=== PATIENT | female | born 1970 | race Caucasian/White ===

== ENCOUNTER 2025-07-19 14:51 | Outpatient (CLI) | payer BC, SELFPAY ==
--- OUTSIDE RECORDS SUMMARY | 2025-07-12 03:09 | XMS_ITS | Continuity of Care Document ---
Author Organization [facility] Address [address] [place] [address] Phone Care Team Providers Care Manager Pharmacy Name Role Phone Marleny Kirkpatrick NP Unavailable Unavailable Allergies, Adverse Reactions, Alerts Substance Reaction Status Criticality codeine Active No Information Medications Medication Instructions Dosage Effective Dates (start - stop) Status Comments Celexa 20 mg tablet TAKE 1 TABLET BY MOUTH DAILY - Active meclizine 25 mg tablet take 1 tablet by oral route 3 times every day as needed 25 MG - Active Vitamin D3 25 mcg (1,000 unit) tablet take 1 tablet by oral route every day 1 tablet - Active Vitamin C 500 mg tablet take 1 tablet by oral route every day 1 tablet - Active Vitamin B-12 1,000 mcg tablet take 1 tablet by oral route every day 1 tablet - Active ondansetron 4 mg disintegrating tablet take 1 tablet by oral route every [address] on top of the tongue where they will dissolve, then swallow 4 MG - Active estradiol-norethindro ne acet 0.5 mg-0.1 mg tablet take 1 tablet by oral route every day 1.00 tablet - Active doxycycline hyclate 50 mg tablet take 1 tablet by oral route once daily - Active B COMPLEX NUMBER 1 (unknown strength) as directed Not Available - Active TESTOSTERONE (unknown strength) 0.125% three times weekly Not Available - Active Procedures Procedure Date Pt inelig neg scrn depres ROUTINE VENIPUNCTURE AR PREVENTATIVE-EST: 40-64 BODY MASS INDEX DOCD SYST BP LT 130 MM HG DIAST BP < 80 MM HG GENERAL HEALTH PANEL LIPID PANEL URINALYSIS, REFLEX (UA) GENERAL HEALTH PANEL LIPID PANEL URINALYSIS, REFLEX (UA) VITAMIN B12 (SERUM) VITAMIN D, 25-HYDROXY Brief Emotional/Behavioral A ssessment, With Scoring/Doct, Per Stndrd Instrument Brief Emotional/Behavioral A ssessment, With Scoring/Doct, Per Stndrd Instrument Clin depression screen doc ROUTINE VENIPUNCTURE [place] PREVENTATIVE-EST: 40-64 BODY MASS INDEX DOCD SYST BP LT 130 MM HG DIAST BP < 80 MM HG Pt inelig neg scrn depres CBC, INC PLATELETS AND DIFFERENTIAL COMPREHEN METABOLIC PANEL CMP LIPID PANEL URINALYSIS, REFLEX (UA) ROUTINE VENIPUNCTURE PREVENTATIVE-EST: 40-64 BODY MASS INDEX DOCD SYST BP LT 130 MM HG DIAST BP < 80 MM HG GENERAL HEALTH PANEL LIPID PANEL URINALYSIS, REFLEX (UA) ROUTINE VENIPUNCTURE OFFICE [id number] BODY MASS INDEX DOCD SYST BP LT 130 MM HG DIAST BP < 80 MM HG Brief Emotional/Behavioral A ssessment, With Scoring/Doct, Per Stndrd Instrument Clin depression screen doc OFFICE [id number] BODY MASS INDEX DOCD SYST BP LT 130 MM HG DIAST BP < 80 MM HG PREVENTATIVE-EST: IMMUN ADMIN (INC PERCUTANEOUS) SINGLE, F IRST INJ FLU VACC 4 ANDREA 0.5mL DOSAGE Brief Emotional/Behavioral A ssessment, With Scoring/Doct, Per Stndrd Instrument Pt inelig neg scrn depres OFFICE [id number] BODY MASS INDEX DOCD SYST BP LT 130 MM HG DIAST BP < 80 MM HG OFFICE [id number] BODY MASS INDEX DOCD SYST BP LT 130 MM HG DIAST BP < 80 MM HG OFFICE [id number] BODY MASS INDEX DOCD SYST BP LT 130 MM HG DIAST BP < 80 MM HG Advance Directives Directive Yes / No Effective Date File Name Life Support Not Answered N/A N/A Intubation Not Answered N/A N/A Antibiotics Not Answered N/A N/A IV Fluid Support Not Answered N/A N/A Tube Feed Not Answered N/A N/A Other Directive N/A N/A WARNING:The information contained in this section is historical and is provided for information only and does not constitute a legal document or any assurance that the information is still accurate. Please verify the information with the storm of the legal document before using it for clinical purposes. Encounters Encounter Description Practice Location Reason(s) For Visit Diagnoses Date Provider Providers Copied on Encounter [facility], [address], [place], [place], [id number] , [place] tel: [phone] [facility] No Information 0- 5 Kaya Farmer. [address] [place], [address], [place]. tel: [phone] PREVENTATIVE -EST: [facility], [address], [place], [place], [address] , tel: [phone] [facility] preventive exam (chief complaint)C hronic Conditions (chief complaint) Encounter for general adult medical examination without abnormal findingsBody mass index [BMI] 27.0-27.9, adultMajor depressive disorder, recurrent, moderateObstructiv e sleep apnea (adult) (pediatric)Hormone replacement therapyPostmenopau myke bleedingScreening for cardiovascular condition 5 Kaya Farmer. [address] [place] [address], [address], . tel: [phone] Referring Provider: Alexia Gonzalez, [address] [place] [address], [address] . tel:[phone] [facility], [address], [place], [place], [address] , tel: [phone] [facility] No Information 5 Polo Carrington. [address] [place] [address], [id number] , . tel: [phone] Referring Provider: Marleny Kirkpatrick, [address] [place] [address], [place], [address]. tel:[phone] [facility], [address], [place], [place], [address] , tel: [phone] [facility] No Information 4 Polo Carrington. [address], [id number] , . tel: [phone] Referring Provider: Marleny Kirkpatrick [address] [place] [address], [address]. tel:[phone] PREVENTATIVE -EST: 40-64 [facility], [address], [place], [place], [address] , tel: [phone] [facility] Yoana OV (chief complaint)P reventive exam (chief complaint)c hronic conditions (chief complaint)C hronic Conditions (chief complaint) Body mass index [BMI] 30.0-30.9, adultVertigoObstru ctive sleep apnea (adult) (pediatric)Hormone replacement therapyWell adult examModerate recurrent major depressionFatigue, unspecified typeVitamin D deficiencyRight knee pain, unspecified chronicityScreenin g for cardiovascular conditionEncounter for screening mammogram for malignant neoplasm of breastEncounter for screening mammogram for malignant neoplasm of breast Sep- 4 Kaya Farmer. [facility] [facility], [place], [address], [place]. tel: [phone] Referring Provider: Alexia Gonzalez, [address] [place] [address], [place], [address] . tel:[phone] PREVENTATIVE -EST: 40-64 [facility], [address], [place], [place], [address] , [place] tel: [phone] [facility] Chronic Conditions (chief complaint)a nnual physical exam (chief complaint) Obstructive sleep apneaAnnual physical examHyperlipidemia , unspecified hyperlipidemia typeRecurrent major depressive disorder, in full remissionBody mass index (BMI) 26.0-26.9, adult Apr- 1 Johan Davies. [address] [place] [address], [id number] , [place]. tel: [phone] Referring Provider: Alexia Gonzalez, [address] [place] [address], [place], [address] . tel:[phone] OFFICE ZDXGA-DJB-DT [facility], [address], [place], [place], [address] , [place] tel: [phone] [facility] Chronic Conditions (chief complaint) Body mass index (BMI) 35.0-35.9, adultMDD (major depressive disorder), recurrent episode, moderateVestibular migraineObstructiv e sleep apneaChronic GERD Sep- 0 Johan Davies. [address] [place] [address], [id number] , [place]. tel: [phone] Referring Provider: Alexia Gonzalez, [address] [place] [address], [place], [address] . tel:[phone] OFFICE BNOHA-SYT-BP [facility], [address], [place], [place], [address] , tel: [phone] [facility] Chronic Conditions (chief complaint) Body mass index (BMI) 35.0-35.9, adultMDD (major depressive disorder), recurrent episode, moderate Aug-0 6-202 0 Jerson Magana. [address] [place] [address], [id number] , [place]. tel: [phone] Referring Provider: Alexia Gonzalez, [address] [place] [address], [place], [address] . tel:[phone] PREVENTATIVE -EST: 40-64 [facility], [address], [place], [place], [address] , tel: [phone] [facility] COVID-educa tion (chief complaint)C hronic Conditions (chief complaint) Vestibular migraineRosaceaMaj or depressive disorder, recurrent, mildObstructive sleep apneaChronic GERDAnnual physical exam Apr-0 7-202 0 Prado Keke. [address] [place] [address], [id number] , [place]. tel: [phone] Referring Provider: Alexia Gonzalez, [address] [place] [address], [address] . tel:[phone] OFFICE PVTMR-PQY-RE [facility], [address], [place], [place], [address] , tel: [phone] [facility] Chronic Conditions (chief complaint) Body mass index (BMI) 32.0-32.9, adultObstructive sleep apneaRosaceaMajor depressive disorder, recurrent, mild Nov-2 0-201 9 Kaya Farmer. [address] [place] [address], [address], [place]. tel: [phone] Referring Provider: Alexia Gonzalez, [address] [place] [address], [place], [address] . tel:[phone] OFFICE DATTY-ISP-EP TAILED [facility], [address], [place], [place], [address] , tel: [phone] [facility] Chronic Conditions (chief complaint) Body mass index (BMI) 31.0-31.9, adultMajor depressive disorder, recurrent, mildChronic GERDConstipation, unspecified constipation type 9 Kaya Farmer. [address] [place] [address], [address], [place]. tel: [phone] Referring Provider: Alexia Gonzalez, [address] [place] [address], [address] . tel:[phone] [facility], [address], [place], [place], [address] , tel: [phone] [facility] Obstructive sleep apnea 9 Becca Hale. [address] [place] [address], [id number] , [place]. tel: [phone] [facility], [address], [place], [place], [address] , tel: [phone] [facility] Obstructive sleep apnea 9 Becca Hale. [address] [place] [address], [id number] , [place]. tel: [phone] [facility], [address], [place], [place], [address] , tel: [phone] [facility] Obstructive sleep apnea 9 Becca Hale. [address] [place] [address], [id number] , [place]. tel: [phone] [facility], [address], [place], [place], [address] , tel: [phone] Care Management MDD (major depressive disorder), recurrent episode, mildAnxiety and depression 9 Jerson Magana. [address] [place] [address], [id number] , [place]. tel: [phone] OFFICE JXAVH-DGL-VR TAILED [facility], [address], [place], [place], [address] , tel: [phone] [facility] Chronic Conditions (chief complaint) Body mass index (BMI) 32.0-32.9, adultMDD (major depressive disorder), recurrent episode, mildChronic GERDVestibular migraineEczema, unspecified typeRosacea Apr- 5-201 9 Jerson Magana. [address] [place] [address], [id number] , [place]. tel: [phone] Referring Provider: Alexia Gonzalez, [address] [place] [address], [address] . tel:[phone] [facility], [address], [place], [place], [address] , tel: [phone] [facility] Chronic GERDMDD (major depressive disorder), recurrent episode, mildVestibular migraineDermatitis Body mass index (BMI) 34.0-34.9, adult Apr-0 9-201 9 Becca Hale. [address] [place] [address], [id number] , [place]. tel: [phone] Referring Provider: Alexia Gonzalez, [address] [place] [address], [address] . tel:[phone] [facility], [address], [place], [place], [address] , tel: [phone] [facility] MDD (major depressive disorder), recurrent episode, mildVestibular migraineChronic GERD Dec-0 6-201 9 Becca Hale. [address] [place] [address], [id number] , [place]. tel: [phone] Referring Provider: Alexia Gonzalez, [address] [place] [address], [address] . tel:[phone] [facility], [address], [place], [place], [address] , tel: [phone] [facility] Vestibular migraineAnxiety and depressionPrimary insomniaBody mass index (BMI) 33.0-33.9, adult Mar-0 7-201 8 Billie Lund. [address] [facility], [address], [place], [address], [place]. tel: [phone] Referring Provider: Ashely Hartley, [address] [facility] [address], [place], [place], [facility]. tel:[phone] Family History Family Member Type Diagnosis Age At Onset Father Problem malignant neopla sm of lung (Cause Of ) Mother Problem (finding) Paternal grandfather Problem (finding) Obesity Brother Problem (finding) Obesity Mother Problem (finding) Arthritis Mother Problem (finding) Obesity Mother Problem (finding) coronary arterioscleros is Mother Problem (finding) Hearing deficiency Mother Problem (finding) asthma Sister Problem (finding) hypertension Brother Problem (finding) Mental illness Maternal grandfather Problem (finding) Obesity Paternal grandmother Problem (finding) Obesity Brother Problem (finding) Hearing deficiency Mother Problem (finding) depression Paternal grandfather Problem (finding) Diabetes mellit us Mother Problem (finding) Allergies Maternal grandfather Problem (finding) hypertension Brother Problem (finding) Allergies Mother Problem (finding) migraine Father Problem (finding) malignant neoplasm of l carlos Maternal grandfather Problem (finding) coronary arteri osclerosis Mother Problem (finding) Renal disease Maternal grandmother Problem (finding) Hearing deficie ncy Mother Problem (finding) hypercholesterolemia Maternal grandmother Problem (finding) Obesity Mother Problem (finding) Diabetes mellitus Mother Problem (finding) hypertension Brother Problem (finding) asthma Maternal grandmother Problem (finding) malignant neoplasm of breast in first degree relative Sister Problem (finding) Obesity Immunizations Vaccine Date Status Comments Fluzone Quad, split virus, 0.5mL dosage administered Source: New Immuniza tion Record Payers Payer name Insurance type Covered green party ID Authoriza tion(s) [place] [id number] [place] [id number] Social History Type Description Quantity Date Captured Comments Alcohol Use Details Unknown Caffeine Use Details Unknown Tobacco Use Status No Information Smoking Status No Information Sex Female Sexual Orientation Straight or heterosexual Gender Identity Female Chief Complaint And Reason For Visit No Information Reason For Referral Reason For Referral No Information Plan Of Treatment Date Type Action Status Goal Dietary management education , guidance, and counseling completed Goal Dietary management education , guidance, and counseling completed Goal Dietary management education , guidance, and counseling completed Goal Dietary management education , guidance, and counseling completed Goal Dietary management education , guidance, and counseling completed Goal Dietary management education , guidance, and counseling completed Goal Dietary management education , guidance, and counseling completed Goal Dietary management education , guidance, and counseling completed Referral Referred To: [address] [facility] [place], [place], [id number] Ordered: SCREENING MAMMOGRAM (CAD) Appointment date/timeframe: 10/04/2024 ordered Referral Referred To: Physical Therapy [address]
[facility] [address] [place], [phone] Ordered: Referrals: Physical Therapy. Location: [facility]. Evaluation/diagnostic/treatment - Level 3 Appointment date/timeframe: 10/05/2024 ordered Referral Referred To: Alcides Delaney MD [address] [facility] [address] [place], [phone] Ordered: Referrals: Pulmonology. Alcides Delaney MD. Evaluate and treat - Level 2 Appointment date/timeframe: 09/09/2019 ordered Referral Referred To: Ermelinda Castellanos MD [address] [facility] [address] [place], [phone] Ordered: Referrals: Pulmonology. Ermelinda Castellanos MD. Evaluate and treat - Level 2 Appointment date/timeframe: 08/17/2019 ordered Referral Referred To: Jian Rainey Ordered: Referrals: Pulmonology. Jian Rainey. Evaluate and treat - Level 2 Appointment date/timeframe: 08/06/2019 ordered Referral Ordered: Referrals: Counseling/mental health services. Location: [facility]. Evaluate and treat - Level 2 ordered Referral Referred To: [facility] Ordered: Referrals: Dermatology. [facility]. Consult - Level 1 Appointment date/timeframe: 05/18/2019 ordered History Of Present Illness Encounter Date Complaint History Of Prese nt Illness preventive exam Postmenopausal. Positive for Hormone replacement therapy . Pertinent negatives include anxiety and depression. Diet healthy. Patient does not take calcium. Patient reports taking Vitamin D. Patient does not take multivitamins. Patient does not take Folic acid.The patient states Patient's exercise level is moderate and frequency is occasional. The patient does not use tobacco. The patient has not been exposed to passive smoke. The patient has not been exposed to passive vaping. The patient does drink alcohol. Additional information: seeing Dr. Jered Lyman for PMH. Has hysteroscopy scheduled. She has had PMB in past with negative workup.. Chronic Conditions *See Chronic Conditions HPI OV Here to reestabl sarah care. Has not been seen since January 2021. At that time she was moving to [facility].Moved back in March.She saw Dr. Juan Alberto Lugo in [place], [place].Getting HRT now through [facility]Needs to have labs drawn for them.Has been feeling tired. Would like vitamin D and B12 levels checked. Is wearing her CPAP again.Has to take a couple naps during the day.Has been having right knee pain. It is the kneecap. Notices it with biking. Still tries to lift weights several days a week. No injury or fall. Interested in physical therapy. Preventive exam Patient's menses is absent. Positive for Hormone replacement therapy . Associated symptoms include anxiety and depression. Diet healthy. Patient does not take calcium. Patient does not take Vitamin D. Patient does not take multivitamins. Patient does not take Folic acid.The patient states Patient's exercise level is moderate and frequency is 3-4 times/week. The patient does not use tobacco. The patient has not been exposed to passive smoke. The patient has not been exposed to passive vaping. The patient does drink alcohol. Additional information: on HRT from [facility]- getting oral progesterone and estrogen and testosterone pelletsneeds mammogrampap- [facility] to [facility] age 51 [facility] chronic conditions *See Chronic Conditions HPI Chronic Conditions *See Chronic Conditions HPI Chronic Conditions *See Chronic Conditions HPI. 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 Chronic Conditions *See Chronic Conditions [facility] Chronic Conditions *See Chronic Conditions [facility] Chronic Conditions *See Chronic Conditions [facility] COVID-education COVID-19 Educati onAt this time patient is not suspected of having COVID-19. Answered patient questions about COVID-19 including signs and symptoms, self home care and warning signs to look for especially the worsening of symptoms and respiratory distress day /. Advised if there is a need to seek care to call first to allow for proper isolation precautions.Phone Consent:This visit was completed via telehealth due to the restrictions of the COVID-19 pandemic. All issues as below were discussed and addressed but no physical exam was performed. The patient verbally consented to visit.Pt called in for her routine office visit.Call lasted for a total of 34 minutes Chronic Conditions *See Chronic Conditions [facility] Chronic Conditions *See Chronic Conditions [facility] Chronic Conditions *See Chronic Conditions HPI Functional Status Date Functional Assessmen t No Information Instructions Date Instruction Additional Infor mation keep hysteroscopy appt with OBGY N Related to Postmenopausal bleeding lipid panel will be checkedCall with any questions or concernsvaccines declinedlabs todayreturn yearly Related to Screening for cardiovascular condition continue on current medicationrefills givencall if this changes Related to Major depressive disorder, recurrent, moderate call if you feel tir ed and need a new sleep study Related to Obstructive sleep apnea (adult) (pediatric) managed by OBGYN Related to Horm one replacement therapy Personal and family medical history reviewed and updated. Medications reviewed and continue as directed. Continue exercise as tolerated and maintain healthy diet. Discussed weight, diet, exercise, immunizations, and healthy lifestyle.mammo- Due in Septemberolon- please let me know who did this and when so we can try to get recordsPap- per Dr. Jered Lyman Related to Encounter for general adult medical examination without abnormal findings Dietary management e ducation, guidance, and counseling Related to Body mass index (BMI) 27.0-27.9, adult Disease process Giving encouragement to exercise Related to Body mass index (BMI) 27.0-27.9, adult [facility]ammogram [facility] Related to Encounter for screening mammogram for malignant neoplasm of breast I will refer you to physical therapy for further evaluation Related to Right knee pain, unspecified chronicity Continue on current citalopram.Please call with any refills Related to Moderate recurrent major depression Lipid level will be checked. Rel ated to Screening for cardiovascular condition Levels will be checked Related t o Vitamin D deficiency Hopefully this will improve with getting the CPAP again.I will check vitamin D and B12 levels. Related to Fatigue, unspecified type follow with Dr. Mario mcnair to get new cpap Related to Obstructive sleep apnea (adult) (pediatric) I will send meclizin e and zofran to the pharmacycall if this worsens Related to Vertigo Personal and family medical history reviewed and updated. Medications reviewed and continue as directed. Continue exercise as tolerated and maintain healthy diet. Discussed weight, diet, exercise, immunizations, and healthy lifestyle.mammo- will ordercolon-will try to get kxoimpkPfc-by-hlkvgdncg for pap Related to Well adult exam This is managed by Kal Delaney.Follow-up as scheduled Related to Hormone replacement therapy Giving encouragement to exercise Related to Body mass index (BMI) 30.0-30.9, adult Dietary management e ducation, guidance, and counseling Related to Body mass index (BMI) 30.0-30.9, adult Disease process Disease process Continue your Celexa as prescribedPlease call if depression worsens.Be sure to get plenty of rest and be sure to stay hydrated.Status: Able to self-manage condition. Barriers: No barriers to goal achievement have been identified. Goals: Your goal is to manage your medicine. Related to Recurrent major depressive disorder, in full remission We will recheck your cholesterol level today Related to Hyperlipidemia, unspecified hyperlipidemia type Reviewed and updated medical, social, and family history. Medications reviewed and continue as directed.Mammogram is due.You are up-to-date on all routine screenings at this time.Continue medications as prescribed.We will check labs today.CBC, CMP, lipids, and urinalysisGREAT WORK WITH THE WEIGHT LOSS!Continue with healthy choices and exercise.Follow-up again in one year.Please call the office with any questions or concerns prior to your next appointment. AVOID CROWDS AVOID TOUCHING YOUR FACE AVOID UNNECESSARY TRAVEL. WASH HANDS OFTEN. CALL WITH QUESTIONS/CONCERNS Related to Annual physical exam We will order a repe at sleep study today to see if your still need your CPAP Related to Obstructive sleep apnea Giving encouragement to exercise Related to Body mass index (BMI) 26.0-26.9, adult Dietary management e ducation, guidance, and counseling Related to Body mass index (BMI) 26.0-26.9, adult Disease process This is well-managed with omeprazole.Continue the medication as prescribed.Please call us if your acid reflux worsens Related to Chronic GERD Continue wearing your CPAP Relat ed to Obstructive sleep apnea Stable.I will refill your Zofran and meclizine today to have if needed.Please call the office if your vestibular migraines start reoccurring Related to Vestibular migraine Depression has signi ficantly improved since restarting Celexa.90 day prescription with 3 refills was sent to the pharmacy.Please call if depression worsens.Be sure to get plenty of rest and be sure to stay hydrated.Status: Not meeting treatment plan goals. Goals: Your goal is to manage your medicine. Barriers: No barriers to goal achievement have been identified. Related to MDD (major depressive disorder), recurrent episode, moderate Giving encouragement to exercise Related to Body mass index (BMI) 35.0-35.9, adult Disease process Dietary management e ducation, guidance, and counseling Related to Body mass index (BMI) 35.0-35.9, adult Medication adjustmen ts: wean off wellbutrin ( take one tablet every other day for 2 weeks then stop)START back on Celexa 20mg, prescription sent to [facility] in 4-6 weeks to discuss how it is workingWill have care management contact you with resources for therapist in your network, highly recommend follow up with someone to discuss concernsBe sure to get plenty of rest, stay hydrated, try to improve nutritionExercise as tolerated, you can try yoga, meditation, or essential oilsCall for any worsening symptoms of depressionStatus: Not meeting treatment plan goals. Goals: Your goal is to manage your medicine. Barriers: No barriers to goal achievement have been identified. Related to MDD (major depressive disorder), recurrent episode, moderate Giving encouragement to exercise Related to Body mass index (BMI) 35.0-35.9, adult Dietary management e ducation, guidance, and counseling Related to Body mass index (BMI) 35.0-35.9, adult Disease process This is well-managed with omeprazole.Continue the medication as prescribed.Please call us if your acid reflux worsens Related to Chronic GERD Continue wearing your CPAP Relat ed to Obstructive sleep apnea You state this is ma naged with your current medications.Please call the office if your depression or anxiety worsensStatus: Able to self-manage condition. Goals: Your goal is to manage your medicine. Barriers: No barriers to goal achievement have been identified. Related to Major depressive disorder, recurrent, mild This is managed by Kal Banks.Continue your doxycycline and Soolantra as prescribed. Related to Rosacea Stable.I will refill your Zofran and meclizine today to have if needed.Please call the office if your vestibular migraines start reoccurring Related to Vestibular migraine You are up-to-date o n all routine screenings at this time.We will obtain a copy of your last Pap smear from Dr. Almendarez's office as well as your left mammogram.Continue medications as prescribed.We will contact you in March to schedule yearly labs once the pandemic improves.Family history was reviewed and updated.Work on improving your diet in increasing your activity level.We do recommend 30 minutes of exercise at least 5 days a week.Follow-up again in one year.Please call the office with any questions or concerns prior to your next appointment. AVOID CROWDS AVOID TOUCHING YOUR FACE AVOID UNNECESSARY TRAVEL. WASH HANDS OFTEN. CALL WITH QUESTIONS/CONCERNS Related to Annual physical exam Disease process no change with doxyc yclinefollow with derm Related to Rosacea continue with the cpap Related t o Obstructive sleep apnea no change with wellb Koffi will send buspirone to your pharmacy for you to take as needed to help take the edge off5mg can be taken every 8 hours as needed.ok to take 10mg if 5mg doesn't do the trick.Call with any changes at [facility] do recommend you try to get in with a counselor as soon as possible with everything that's going on with your family life right now.Call if you need any recommendationsStatus: Meeting treatment plan goals. Goals: Your goal is to contact a counselor. Barriers: No barriers to goal achievement have been identified.Call with any questions or concernsno labs todayflu shot todayreturn in December for a physical. Related to Major depressive disorder, recurrent, mild Giving encouragement to exercise Related to Body mass index (BMI) 32.0-32.9, adult Dietary management e ducation, guidance, and counseling Related to Body mass index (BMI) 32.0-32.9, adult Disease process continue on your med ication, omeprazoleCall with any questions or concernsno labs at this timeget your flu shot this seasonreturn in 1 to 2 months Related to Chronic GERD Status: Meeting nikko tment plan goals. Goals: Your goal is to contact a counselor. Barriers: No barriers to goal achievement have been identified.Continue with the Wellbutringood luck with the counselor todayhopefully this will automotive electrical helper in treatment.We will check back in 1 to 2 months to see if your medication needs to be adjusted In order to best optimize your mood, I recommend: good nutrition, exercise, therapy, stress reduction, taking your medications as prescribed, avoiding alcohol, and a consistent sleeping schedule. All of these will help optimize your depression.Status: Meeting treatment plan goals. Goals: Your goal is to contact a counselor. Barriers: No barriers to goal achievement have been identified. Related to Major depressive disorder, recurrent, mild For now, we're going to hold off on Linzesscontinue to avoid the betafood supplementcontinue on the probioticwe discussed increasing fiber to 30 g a day, increasing water consumption to at least 11 eight oz cups of water a day, and increasing your activity.Opt for a colorful diet avoid beige or brown foods.We will check back in 1 to 2 months to see if your bowel movements are more regular. Related to Constipation, unspecified constipation type Dietary management e ducation, guidance, and counseling Related to Body mass index (BMI) 31.0-31.9, adult Exercise Giving encouragement to exercise Related to Body mass index (BMI) 31.0-31.9, adult continue Wellbutrin at current dosewill consult with the care management group, and they will contact you regarding therapist in the areawe can restart the celexa at a low dose if needed, call the office return in 3-4 monthscall with any questions or concernsStatus: Requires more self-management coaching. Barriers: No barriers to goal achievement have been identified. Goals: Your goal is to learn about relapse of depression. Related to MDD (major depressive disorder), recurrent episode, mild this is controlled now Related t o Vestibular migraine continue omeprazolea void spicy, greasy, fatty foods Related to Chronic GERD as above Related to Rosac ea will give you a samp le of Eucrisa cream this can be applied on the face if neededwill send the referral for [facility] for further evaluation Related to Eczema, unspecified type Disease process Dietary management e ducation, guidance, and counseling Related to Body mass index (BMI) 32.0-32.9, adult Disease process Giving encouragement to exercise Related to Body mass index (BMI) 32.0-32.9, adult Assessments Type Assessment Date No Information Patient Care Teams Name Effective Dates (start - stop) Status Members No Information
[2025-07-19 15:14] LABS: Hematocrit 43.8 % (37.0-47.0); Hemoglobin 14.2 g/dL (12.0-15.0)
--- OUTSIDE RECORDS SUMMARY | 2025-07-19 15:47 | XMS_ITS | Clinical Summary ---
Author Organization [facility] Address [address] [place] [address] Care Team Providers Care Apprentice Pattern Maker Name Role Phone Halley Gregory MD Unavailable [phone] Nader Vasques OD Unavailable Nima Frank MD Unavailable [phone] Franklyn Patel MD Unavailable [phone] Pcp, [facility]- Primary Care Provider Unavailable Source Comments [facility],non-owned Affiliates and Associated Physician Practices is amultiple site organization consisting of ambulatory clinics and hospital sitesin [place], [place], [place] and [place]. This disclosure is being madepursuant to the Care Everywhere program and may not contain all information available regarding this patient. Last updated 18.[facility] Allergies Active Allergy Reactions Criticality Noted Date Comments Codeine Nausea and/or Vomiting 09/03/2009 Hydrocodone Nausea and/or Vomiting 09/03/2009 Medications * Be aware that medications may not be up to date on this document. Alwaysverify current medications with the patient. citalopram (CELEXA) 20 MG tabletIndicatio ns:Panic Disorder Take 1 tablet by mouth once daily Reasons: Panic Disorder 90 tablet 1 08/06/2017 Active Active Problems Problem Noted Date Diagnosed Date Sensorineural hearing loss 10/16/2016 Vestibular migraine 08/09/2010 Preventative health care 07/31/2010 Overview (07/31/2010): Pap: java tech lead Depression with anxiety 07/31/2010 Rosacea 07/31/2010 Shift work sleep disorder 07/31/2010 Overview (09/23/2012): Takes nuvigil 3 pills per week and restoril 2 pills per week Overweight 07/31/2010 Overview (08/20/2015): Feels it is due to excess food consumption. Resolved Problems Problem Noted Date Diagnosed Date Resolved Date Nonspecific elevation of lev els of transaminase or lactic acid dehydrogenase (LDH) 08/09/2010 03/23/2012 Overview (08/13/2010): Normal iron, ISIDORO, hepatitis A,B,C 07/22 Liver u/s normal 08/22 Likely fatty liver. Immunizations Immunization Administration Dates Next Due INFLUENZA VACCINE, TRIV. (AF LURIA, FLUZONE TRIVALENT; 6MO+) (IIV3) 06/15/2012,07/31/2010 FLU VACCINE QUAD IIV4 PF ID 08/06/2016 HEP A VACCINE, ADULT 08/06/2017,02/04/2017 HEP B VACCINE ADOL/ADULT 2 DOSE 04/12/1996,11/13,10/13/1995 INFLUENZA VACCINE 07/30/2017, 6,07/18/2015,2013,06/27/2013,06/15/2012,07/08/2011 TDAP (7yrs+) 04/12/2021,07/31/2010 TYPHOID ORAL 01/11/2017 Family History Medical History Relation Name Comments COPD - Chronic Obstructive Pulmonary Disease Father smoker Cancer Father lung CAD (Coronary Artery Disease) Maternal Grandfather Diabetes Maternal Grandfather Heart Failure Maternal Grandfather CAD (Coronary Artery Disease) Maternal Grandmother Cancer - Breast Maternal Grandmother Asthma Mother CAD (Coronary Artery Disease) Mother Diabetes Mother Heart Failure Mother Diabetes Paternal Grandmother Relation Name Status Comments Father Maternal Grandfather Maternal Grandmother Mother Paternal Grandmother Social History Tobacco Use Types Packs/Day Years Used Date Smoking Tobacco: Never Smokeless Tobacco: Never Tobacco Cessation:Counseling Given: Yes Alcohol Use Standard Drinks/Week Comments No 0 (1 standard drink = 0.6 oz pur e alcohol) 1 every few months PHQ-2 Answer Date Recorded PHQ2 TOTAL SCORE 0 04/12/2021 Comments No Sex and Gender Information Value Date Recorded Sex Assigned at Not on file Legal Sex Female 1:08 PM SMELLER Gender Identity Not on file Sexual Orientation Not on file Occupation Industry Job Start Date Job End Date Nurse Not on file Not on file Not on file Last Filed Vital Signs Vital Sign Reading Time Taken Comments Blood Pressure 110/78 04/12/2021 2:11 PM CDT Pulse 92 04/12/2021 2:11 PM CDT Temperature 37.6 C (99.7 F) 04/12/2021 2:11 PM CDT Respiratory Rate 16 04/12/2021 2:11 PM CDT Oxygen Saturation 98% 04/12/2021 2:11 PM CDT Inhaled Oxygen Concentration - - Weight 67.9 kg (149 lb 9.6 oz) 04/12/2021 2:11 P M CDT Height 165.1 cm (5' 5) 04/12/2021 2:11 PM CDT Body Mass Index 24.89 04/12/2021 2:11 PM CDT Plan of Treatment Health Maintenance Due Date Last Done Comments COLOGUARD (AGES 45-75) - COLON CA SCREENING 1971 COLON MONITORING 1971 COLONOSCOPY - COLON CA SCREENING 1971 CT COLONOGRAPHY - COLON CA SCREENING 1971 Colorectal Cancer Screening 1971 FIT - COLON CA SCREENING 1971 FLEX SIG - COLON CA SCREENING 1971 HIV SCREENING 1986 MAMMOGRAM 02/05/2018 02/06/2016, 06/09/2013 LIPID TESTING 08/09/2020 08/09/2015, 07/13, 01/14/2009 PNEUMOCOCCAL VACCINE 50+ (1 of 1 - PCV) 2021 ZOSTER VACCINE (1 of 2) 2021 DEPRESSION SCREENING 10/13/2024 COVID-19 VACCINE (1 - 2023- season) 2025 INFLUENZA VACCINE (#1) 2025 7, 08/06/2016, 07/15/2016, Additional history exists DTAP/TDAP/TD VACCINES (3 - Td or Tdap) 04/12/2031 04/12/2021, 07/31/2010 HEPATITIS B VACCINE Completed 04/12/1996, 11/13/1995, 10/13/1995 HEPATITIS C SCREENING Completed 08/01/2010 HEPATITIS A VACCINE Completed 08/06/2017, 7 HIB VACCINE Aged Out No longer eligi ble based on patient's age to complete this topic HPV VACCINE Aged Out No longer eligi ble based on patient's age to complete this topic MENINGOCOCCAL (Group B) VACCINE SHARED DECISION-MAKING Aged Out No longer eligible based on patient's age to complete this topic MENINGOCOCCAL GROUPS A/C/Y/W VACCINE Aged Out No longer eligible based on patient's age to complete this topic Procedures Procedure Name Priority Date/Time Associated Diagnosis Comments MAMMO BILAT SCREENING Routine 02/06/2016 12:21 PM CDT Screening for breast cancer LIPID PROFILE Routine 08/09/2015 9:19 AM CDT Shift work sleep disorder Depression with anxiety Left foot pain HEPATITIS SCREEN ACUTE Routine 08/01/2010 3:52 PM CDT Elev transaminase/LDH Hypocalcemia from Last 3 Months or Most Recently Relevant to Health Maintenance Results * KINA SCREENING DIGITAL IMAGE BILATERAL G0202 (02/06/2016 12:21 PM CDT) Anatomical Region Laterality Modality Breast Bilateral Mammography 02/07/2016 8:39 AM CDT Impressions 02/07/2016 10:26 AM CDT No mammographic evidence of malignancy in either breast. ASSESSMENT: BIRADS Category 1: Negative mammogram. RECOMMENDATION: Bilateral screening mammogram in one year. Thank you for allowing us to participate in the care of your patient. [facility] utilizes Portfolium as a reminder system to notify patients of their next recommended mammogram. I, Sharmin Flores, have personally reviewed the images and I agree with this report. Narrative 02/07/2016 10:26 AM CDT EXAMINATION: Digital screening mammogram on 10/11/2015. Low-dose full-field digital breast tomosynthesis examination was performed with 2D and 3D acquisitions. Computer assisted detection was utilized. PRIOR: 06/09/2013 FINDINGS: Breast parenchymal density: The breasts are extremely dense, which lowers the sensitivity of mammography. Risk assessment calculation: Based on the information provided by your patient, her lifetime risk of breast cancer is average (<15%) (calculated at 11.3% by the BRCAPRO model, 12.8% by the Nikki model, and 9.9% by the Tyrer-Cuzick model). Please note this information is only as accurate as the data entered by the patient. Bilateral subpectoral saline breast implants are present; the presence of an implant lowers the sensitivity of mammography. No suspicious masses, areas of architectural distortion or microcalcifications are evident on 2D mammogram or tomosynthesis images. There has been no significant interval change since the prior examination. Jose Henley MD MAMMO ORDERABLES Final Result * (ABNORMAL) LIPID PROFILE (08/09/2015 9:19 AM CDT) Cholesterol 209(H) 100 - 199 mg/dL [facility] INSURANCE BILL Comment:Please note refere nce interval change Triglycerides 46 0 - 149 mg/dL [facility] INSURANCE BILL Comment:Please note refere nce interval change HDL Cholesterol 69 >39 mg/dL [facility] INSURANCE BILL Comment: According to ATP-III Guidelines, HDL-C >59 mg/dL is considered a negative risk factor for CHD. VLDL Calculated 9 5 - 40 mg/dL [facility] INSURANCE BILL LDL Calculated 131(H) 0 - 99 mg/dL [facility] INSURANCE BILL Comment:Please note refere nce interval change Comment NOT NEEDED [facility] INSURANCE BILL Comment:Ancillary determined the test is not needed Blood specimen (specimen) BLOOD SPECIMEN / Unknown 08/09/2015 9:19 AM CDT 08/09/2015 12:24 PM CDT Narrative [facility] INSURANCE BILL - 08/10/2015 6:20 AM CDT A courtesy copy of this report has been sent to the patient. Resulting Agency Comment [facility] [address] [id number] Jose Henley MD LAB - CHEMISTRY ORDERABLES Fi nal Result [facility] INSURANCE BILL [address] [place] [address] * HEPATITIS SCREEN ACUTE (08/01/2010 3:52 PM CDT) Hepatitis A Virus Antibody IgM Negative Negative [facility] INSURANCE BILL Hepatitis B Virus Surface Antigen Negative Negative [facility] INSURANCE BILL Hepatitis B Core Virus Antibody IgM Negative Negative [facility] INSURANCE BILL Hepatitis C Virus Antibody <0.1 0.0 - 0.9 s/co ratio [facility] INSURANCE BILL Comment: Negative: < 0.8 Indeterminate 0.8 - 0.9 Positive: > 0.9 . In order to reduce the incidence of a false positive result, the CDC recommends that all s/co ratios between 1.0 and 10.9 be confirmed with additional RIBA or PCR testing. BLOOD SPECIMEN / Unknown 08/01/2010 3:52 PM CDT 08/01/2010 9:49 PM CDT Narrative Resulting Agency Comment [facility] [address] [facility] [phone] Jose Henley MD LAB - CHEMISTRY ORDERABLES Fi nal Result [facility] INSURANCE BILL [address] [place] [address] from Last 3 Months or Most Recently Relevant to Health Maintenance Insurance [facility] Care Teams Apprentice Pattern Maker Relationship Specialty Start Date End Date Pcp, [facility]- PCP - General 05/09/23 Halley Gregory MD Obstetrics and Gynecology 05/04/14 Nader Vasques OD [address] [place] [address] [id number] Cementing Machine Operator 11/01/14 Nima Frank MD [address] [place] [id number] Internal Medicine 08/06/16 Franklyn Patel MD [address] [place] [id number] Internal Medicine 08/06/16
--- OUTSIDE RECORDS SUMMARY | 2025-07-19 15:47 | XMS_ITS | Clinical Summary ---
Author Organization [facility] Address [facility] [place] [address] Care Team Providers Care Process Laboratory Specialist Name Role Phone Kareem Hudson Primary Care Provider [phone] Allergies Active Allergy Reactions Criticality Noted Date Comments Codeine Nausea and Vomiting 11/03/2017 Medications famotidine 20 MG tablet Take 1 tablet (20 mg total) by mouth 2 (two) times daily. 30 tablet 11/03/2017 Active cyclobenzaprine 5 MG tablet Take 1 tablet (5 mg total) by mouth 3 (three) times daily as needed for Muscle Spasms. 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 Gender Identity Not on file Sexual Orientation Not on file Last Filed Vital Signs Vital Sign Reading Time Taken Comments Blood Pressure 125/86 11/03/2017 9:26 AM COMPUTER NUMERICAL CONTROL OPERATOR Pulse 61 11/03/2017 9:26 AM COMPUTER NUMERICAL CONTROL OPERATOR Temperature 36.8 C (98.2 F) 11/03/2017 5:52 AM COMPUTER NUMERICAL CONTROL OPERATOR Respiratory Rate 16 11/03/2017 9:26 AM COMPUTER NUMERICAL CONTROL OPERATOR Oxygen Saturation 97% 11/03/2017 9:26 AM COMPUTER NUMERICAL CONTROL OPERATOR Inhaled Oxygen Concentration - - Weight - - Height - - Body Mass Index - - Plan of Treatment Health Maintenance Due Date Last Done Comments Cervical Cancer Screening Pap Smear (Age 30 to 64) Every 3 Years 1971 Colorectal Cancer Screening Colonoscopy (10 Years) 1971 Annual Physical 1974 Hepatitis C 1989 Hepatitis B Vaccines (1 of 3 - 19+ 3-dose series) 1990 Cervical Cancer Screening Pap with HPV Testing (Age 30 to 64) Every 5 Years 2001 Cervical Cancer Screening with HPV 2001 Pneumococcal Vaccine: 50+ Years (1 of 1 - PCV) 2021 Zoster Vaccines (1 of 2) 2021 COVID-19 Vaccine (1 - season) 2025 Influenza Adult (#1) 2025 09/01/2019, 07/30/2017, 08/06/2016, Additional history exists Mammogram Screening 07/14/2026 07/14/2024, 04/13/2019, 03/29/2019, Additional history exists DTaP, Tdap and Td Vaccines (3 - Td or Tdap) 04/12/2031 04/12/2021, 07/31/2010 Meningococcal B Vaccine Aged Out No l onger eligible based on patient's age to complete this topic Meningococcal Vaccine Aged Out No najma hollie eligible based on patient's age to complete this topic RSV Immunizations Under 20 Months Aged Out No longer eligible based on patient's age to complete this topic Procedures Procedure Name Priority Date/Time Associated Diagnosis Comments MG SCREENING IMPLANT W DRU DEN DIGI Routine 07/14/2024 5:28 PM CDT Encounter for screening mammogram for malignant neoplasm of breast from Last 3 Months or Most Recently Relevant to Health Maintenance Results * MG SCREENING IMPLANT W DRU DEN DIGI (07/14/2024 5:28 PM CDT) Anatomical Region Laterality Modality Breast Bilateral Mammography 08/05/2024 2:30 PM CDT Impressions 08/05/2024 2:31 PM CDT IMPRESSION: No suspicious mammographic findings. Recommendation: 1. Routine Screening, Bilateral Assessment: ACR BI-RADS 2 - BENIGN FINDING(S) Ordered By: KAREEM HUDSON Interpreted By: Jaime Kaur, 08/05/2024 2:30 PM Narrative 08/05/2024 2:31 PM CDT [place] [id number] [facility]. [place], [place] [id number] Examination: Screening bilateral mammogram Exam Date/Time: 07/14/2024 4:55 PM Clinical history: No current complaints. Comparison: 08/22/2021 Technique: Digital screening mammography of both breasts was performed. Breast tomosynthesis acquisitions were obtained and reviewed. This study was read with the assistance of a computer-aided detection system. Tissue density: The breasts are heterogeneously dense, which may obscure small masses. Findings: No suspicious masses, malignant appearing calcifications, skin thickening or other abnormalities are present. No significant change from the prior exam. Kareem Hudson DO MAMMO Final Result from Last 3 Months or Most Recently Relevant to Health Maintenance Insurance [facility] Care Teams Process Laboratory Specialist Relationship Specialty Start Date End Date Kareem Hudson DO [address] [place] [phone] PCP - General INTERNAL MEDICINE 07/14/24
== END 2025-07-19 14:52 | disposition home or self-care (01) ==
PROVIDERS: PCP Internal Medicine; Visit Provider Obstetrics & Gynecology
DX: N95.0 Postmenopausal bleeding (principal)
CPT/HCPCS: 36415; 85014; 85018

== ENCOUNTER 2025-07-21 00:38 | Day surgery (SDC) | payer BC, SELFPAY ==
--- NOTE | 2025-07-19 07:30 | PM.IMHP ---
H&P: HPI History of Present Illness Date/Time: 07/19/25 07:30 Chief Complaint: Postmenopausal bleeding Narrative: 54-year-old 2 para 2 admitted for hysteroscopy dilatation curettage secondary to postmenopausal bleeding. She had ultrasound which showed her endometrial lining to be her 6mm with no abnormal flow. Suspicion is low but she opted for assurance with the hysteroscopy dilatation curettage risks and benefits reviewed including but not exclusive of , aspiration pneumonia, bleeding, transfusion, perforation injury to bowel, bladder, ureters, or other internal organs with need for open laparotomy and repair. She received the AC handouts entitled hysteroscopy and dilatation curettage respectively. She had all questions answered. She asked to proceed. Review of Systems Review of Systems: All systems reviewed & are unremarkable except as noted in HPI and below Exam Const: General: cooperative, healthy appearing and comfortable Nutritional Appearance: average body habitus Orientation/consciousness: oriented to person, oriented to place and oriented to time Resp: Effort & Inspection: normal respiratory effort Cardio: Rate: regular rate Rhythm: regular rhythm Heart sounds: S1 normal heart sound present and S2 normal heart sound present GI: Inspection: normal to inspection : External Female Exam: normal external appearance Speculum Exam - Vagina: normal appearance of the vagina Speculum Exam - Cervix: normal appearance of the cervix Bimanual exam- vagina & uterus: non-tender Bimanual Exam- Adnexa, other: normal adnexae Assessment and Plan Assessment and plan (1) Postmenopausal bleeding: Code(s): N95.0 - Postmenopausal bleeding Status: Acute Plan Proceed with hysteroscopy/dilatation and curettage
[2025-07-19 14:01] VITALS: BMI 25.6
--- NOTE | 2025-07-19 14:10 | PC.NURSE ---
[facility] has started construction of its new state of the art ER which will open Spring 2026. With this, we anticipate parking may be a challenge for some our surgical patients and families. Parking spaces are limited but are available for all Surgical, obstetrics, and ER patients sharing this lot. If you arrive and find you are having a hard time finding a parking space, please note that we understand the challenges, please drive around the hospital and park near Hospital Entrance 1. When you enter this entrance, you can ask a volunteer to direct or take you back to the surgical waiting area to check in. We appreciate everyone?s understanding of these expected challenges while we build for your future. Report to the Outpatient Waiting Room, entrance under the green pavilion located off [address], at time _0730_ on date _[id number]_. Planned Procedure Time: _929_.? Time changes happen often and if your time is changed the preop area will call you the afternoon before. - You and your visitor will be asked to self-screen and do not enter if you have any COVID symptoms. Please call surgeon if you need to reschedule. - A mask is optional within the hospital at this time. Patients may have clear liquids (water, carbonated beverages, clear teas, apple juice) until 3 hours prior to surgery with a maximum of 20 ounces. - No food from midnight until time of surgery and no smoking, or chewing tobacco (or any form of nicotine). No chewing gum, candy or mints. Take only the following medications with a SIP of water on the morning of surgery: __Citalopram and Doxycycline.___ DO NOT STOP ANY OF YOUR OTHER PRESCRIPTION MEDICATIONS PRIOR TO SURGERY EXCEPT THE FOLLOWING Hold all vitamins and supplements for 3 days per anesthesiologist. Stop today. Medications to discontinue per physician Date to take last dose Please no make-up, nail tuvaluan, hairspray, perfume, deodorant, or body powder the day of surgery.? No jewelry (including any body piercings) or valuables the day of surgery, leave them at home.? Please take a shower or bath the night before, or the morning of, surgery with an antibacterial soap.? Wear comfortable, loose fitting clothing.? - Jewelry must be removed prior to entering the operating room.? Rings and piercings that are not removed may be cut off. - The hospital will not accept responsibility for valuables.? - Please leave all valuables, including medications, at home the day of surgery. If you are going home after surgery, a licensed courtesy car driver must drive you home.? - NO public transportation without another adult if you receive anesthesia. - We recommend that an adult stay with you for 24 hours following discharge. - We also recommend that you do not drive, make important decision, drink alcoholic beverages, or take any drugs that were not prescribed by your health care provider for at least 24 hours after your discharge time. Follow any additional instructions given to you from your surgeon. Telephone instructions given to __Emmettabimael___and asked if any additional questions and then verbalized understanding. Patient advised to call surgeon office or pre surgery nurse liaison [phone] if any additional questions.
--- NOTE | 2025-07-21 06:53 | WPDHPUPDATE1 ---
History and Physical Update Update Date/Time: 07/21/25 06:53 History and Physical has been reviewed, including an updated exam of the patient. There are NO changes in the patient's condition. Risks, benefits, and alternatives have been discussed and questions answered. Patient agrees to proceed with procedure.
[2025-07-21 07:45] VITALS: BMI 26.1
[2025-07-21 07:55] VITALS: BP 110/70; PULSE 57; RESP 18; TEMP 36.9; O2SAT 98
[2025-07-21] MEDS: LACTATED RINGERS 1,000 ML 30 ML IV CONT (08:30)
[2025-07-21] MEDS: ACETAMINOPHEN 500 MG TABLET 1000 MG PO (08:32)
--- NOTE | 2025-07-21 09:07 | WPDANESEPPF ---
Anes - Initial Pre Proc Eval Procedure: Operation Date: 07/21/25 09:30 Proposed Procedures p Hysteroscopy Dilation and Curettage - Juan Alberto Lyman MD Date/Time: 07/21/25 09:07 Surgeon: Juan Alberto Lyman MD Pre Op Diagnosis: Post menopausal bleeding Patient Data Age: 55 Gender: F Height: 1.67 m Weight: 72.8 kg Last Vital Signs Temp 36.9 C 07/21/25 07:55 Pulse 57 L 07/21/25 07:55 Resp 18 07/21/25 07:55 BP 110/70 07/21/25 07:55 Pulse Ox 98 07/21/25 07:55 O2 Del Method Room Air 07/21/25 07:55 Allergies Allergy/AdvReac Type Severity Reaction Status Date / Time codeine AdvReac Severe Nausea and Verified 07/21/25 08:36 Vomiting Home Medications ?Medication ?Instructions ?Recorded ?Confirmed ?Type ascorbic acid (vitamin C) 500 mg 500 mg PO DAILY 07/19/25 07/21/25 History tablet (C-500) cholecalciferol (vitamin D3) 100 100 mcg PO DAILY 07/19/25 07/21/25 History mcg (4,000 unit) capsule citalopram 20 mg tablet 20 mg PO DAILY 07/19/25 07/21/25 History cyanocobalamin (vitamin B-12) 3,000 mcg PO DAILY 07/19/25 07/21/25 History 1,000 mcg tablet doxycycline hyclate 50 mg capsule 50 mg PO DAILY 07/19/25 07/21/25 History estradiol-norethindrone acet 0.5 1 tablet PO HS 07/19/25 07/19/25 History mg-0.1 mg tablet vitamin B complex 1 tablet PO DAILY 07/19/25 07/21/25 History Patient hx anesthesia problems: none Family hx anesthesia problems: none Results Review: All pre-operative results and documents have been reviewed as part of the pre-operative evaluation. [facility] Past Medical History Medical History PONV (postoperative nausea and vomiting) Anxiety EM (obstructive sleep apnea) Social History Social History Smoking status: Never smoker Alcohol intake: current Substance use: never Living arrangements: with family Spiritual care concerns: No Anes - Eval Final PreProcedure Day of Procedure 07/21/25 09:07 Patient weight: overweight Heart: regular rate and rhythm Lungs: clear to auscultation Airway: Mallampati scale class II Neurological: alert and oriented Last oral intake: >/= 8 hours ASA classification: II Emergent: no Anesthetic plan: proceed Anesthesia type and monitoring: general GIVS and standard monitoring Results Review: All pre-operative results and documents have been reviewed as part of the pre-operative evaluation. Informed Consent: The patient's anesthetic plan and its attendant risks and benefits were discussed with the patient/family/POA. Questions were solicited and answers provided to the satisfaction of the patient/family/POA.
[2025-07-21] MEDS: LIDOCAINE 1% LOCAL INJ 10 ML VIAL INFILTRATE (09:30)
--- NOTE | 2025-07-21 09:34 | S_PTH ---
PATIENT: Kristine Shafer LOC: [facility] U#:[id number] AGE/SX: 55/F ROOM: RE07/21/[address]: Juan Alberto Lyman MD : 1970 BED: DIS: 07/21/2025 SPEC #: [id number] RECD: 07/21/25 11:29 STATUS: OSCAR REQ #: [id number] SHRAVAN: 07/21/25 09:[address]: Juan Alberto Saul DEPT: [facility] Surgical RECD BY: Alka Lyles ENTERED: 07/21/25 11:29 SP TYPE: Surgical OTHR DR: Alexia Hudson, DO Tissues: A - Endometrial Curettings Procedures: Hematoxylin and Eosin Stain Gross and Microscopic Level 4
--- NOTE | 2025-07-21 09:37 | W.PM.PROC2 ---
Procedure Note - Detailed Date of Procedure 07/21/25 Pre-op Diagnosis Post menopausal bleeding Post-op Diagnosis Same Procedure Performed Hysteroscopy/dilatation curettage Surgeon Juan Alberto Lyman MD Anesthesia MAC and Local Indications This is a 55-year-old female some postmenopausal bleeding Findings Benign-appearing endometrium Description of Procedure Patient was prepped draped in the normal sterile fashion placed in dorsal lithotomy position. Under excellent IV sedation weighted speculum placed in posterior fornix vagina. Anterior lip of the cervix grasped with a single-tooth tenaculum. 2.5cc 1% xylocaine anesthesia placed equally at 2, 4, 8, 10:00 a.m. the cervix uterus sounded to7.5cm. Serial dilatation with fragmented dilators performed followed by passage of the 5mm visualizing hysteroscope. Normal saline was used as visualizing medium. No abnormalities were seen. Each fallopian tube os could be seen. The uterus was then scraped over the entire 360? with the small instrument. The instruments withdrawn. The patient went to recovery in satisfactory condition. All sponge, needle, instrument counts were correct. There were no immediate complications Estimated Blood Loss 5 Drains No Packing No Pathology Yes Complications No immediate complications Condition Stable Disposition PACU
[2025-07-21 09:41] VITALS: BP 102/66; PULSE 60; RESP 16; O2SAT 96
[2025-07-21 10:10] VITALS: BP 109/67; PULSE 55; RESP 16
--- NOTE | 2025-07-21 10:37 | SUR.PHASEII ---
IBUPROFEN DROPPED; NOT GIVEN. PATIENT STATES SHE'LL TAKE AT HOME.
== END 2025-07-21 10:35 | disposition home or self-care (01) ==
PROVIDERS: PCP Internal Medicine; Visit Provider Obstetrics & Gynecology
PROC: 0U5B8ZZ Destruction of Endometrium, Via Natural or Artificial Opening Endoscopic (ICD-10-PCS; CPT 58563; principal; 2025-07-21 09:30)
DX: N95.0 Postmenopausal bleeding (principal); F41.9 Anxiety disorder, unspecified; G47.33 Obstructive sleep apnea (adult) (pediatric)
CPT/HCPCS: 58558; 88305; A9270; J2003; J2704; J3010; J7120